=== PATIENT | male | born 2005 | race Caucasian/White ===

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

== ENCOUNTER 2024-08-09 13:00 | Outpatient (RCR) | payer OTHER, MEDICAID, SELFPAY ==
--- NOTE | 2024-06-20 13:29 | HP.PTEVAL_ITS ---
Patient's Visit Information Visit Information Visit Information: RAMIRO POST is a 18 year old M referred to Physical Therapy by AMPARO OATES MD with a diagnosis of Glioma, ataxia, wheel chair assessment. Date of Evaluation: 06/19/24 Physical Therapist: Luis Chacon DPT Visit Plan Frequency: 2x /Week Duration: 6 Weeks Plan: 1) work on dynamic balance and stability 2) reactive righting and balance recovery exercises. 3) Pt. being advised to follow up with [employer] about getting to allow for I at work and home. Subjective Subjective: Pt. is here today for his initial evaluation with diagnosis of ataxia, glioma and hydrocephalus. Pt. reports falling daily. This is often while he is training on his balance at home. Mother reports that he is falling often especially with walking longer distances. Pt. and mother work on walking at the park, but she reports he often falls down. He also is crawling at home due to not having a wheel chair. He crawls mostly in the house, uses stairs with scooting technique due to issues with falling. He reports no weakness throughout BLEs and does do some strength training at home. He uses a total gym. Ramiro reports that he would like to start working. Him and his mother do not think he would be able to complete work activities from a standing throughout the day due to fatigue and issues with falling. Pt. reports no pain. They are hopeful to get a wheel chair that fits him that would allow for him to be able to work and be more independent. Objective Objective: POSTURE: Pt. is able to stand with FWW, but has to heavily use AD to stabilize, he has marked difficulty with maintaining stability in stance. He does use a weighted FWW to assist with stability as well. PALPATION: No issues with palpation throughout BLEs. Pt. no issues with palpation of BUEs. NEURO: Pt. reports normal sensation throughout BLEs and BUEs. Slight hyper reflexive in BUEs and BLEs. Pt is able to rise on heels and toes, but requires balance assistance to complete ROM: Pt. has full ROM of BUEs and BLEs. Slight tightness in B HS as well. MMT: LLE: knee: ext 76#, flexion 57.7#; hip: flexion 32.9#, abd 21.8# RLE: knee: ext 78.9#, flexion 50.4#; hip: flexion 29.7#, abd 22.5#. RUE: 5/5 throughout UE. LUE: 5/5 throughout without increase in symptoms. GAIT: PT. is able to ambulate with fluctuating assistance from CGA to Dao. Pt. has very ataxic motions. He tends to almost tip is FWW with Dao to correct at times. He required frequent assistance to steady self due to his ataxia. Pt.s LEs never gave out on him. Pt. has difficulty staying with in CHARLIE of AD. Directional changes are very difficult more so with safety rather than his st rength. He is not safe to walk independently at this point in time. STAIRs: Pt. completed with step to pattern with heavy use of UEs. Pt. requires min to mod A for stability. When it comes to a wheel chair for Ramiro I think we would really benefit from a manual WC with propulsion assist. He is not very functionally I with walking with FWW at this point in time. I do think it is good from him to continue to walk, but he requires constant supervision and assistance for safety with walking with FWW. The fact that he is crawling at home to some of his locomotion has me concerned as well. By giving him a wheel chair I believe his I with be drastically increased. Balance/Special Test Scores Lower Extremity Functional Score: 22 TUG Test Time Seconds: 50.45 30 Second Chair Rise Test Seconds: 7 Goals Goal 1:: LTG: Pt. to be with HEP. Goal Time Frame: 4-6 Weeks Goal 2:: LTG: PT. to ambulate with SBA with FWW without LOB for 350'. Goal Time Frame: 4-6 Weeks Goal 3:: LTG: Pt. to complete 30 sec sit to stand rep test with out external assistance with 12 reps. Goal Time Frame: 4-6 Weeks Goal 4:: LTG: Pt. to complete TUG with time less than 30seconds indicating increased stability/safety. Goal Time Frame: 4-6 Weeks Rehabilitation Potential Physical Therapy Diagnosis: Pt. has signs and symptoms consistent with glioma and subsequent ataxia. He has very good strength in his BLEs, but marked ataxia with gait. Pt. would benefit from PT to address his ataxia and imbalance. He would also benefit from a WC to allow for more independence at home and work. Rehabilitation Potential: Good Anticipated Interventions Patient/Client Instruction: Educate patient on: Condition, Plan of Care, Risk Factors and Benefits of Fitness Program For the Purpose of:: To foster healthy habits, To improve decision making, To facilitate caregiver knowledge, To improve self management, To prevent re-injury and To improve ability to perform tasks related to life management Therapeutic Exercise to Include: Endurance training, Balance training, Coordination, Body mechanics, Postural training, Gait and locomotor training and Neuromotor development For the Purpose of:: To improve nutrient delivery to tissue, To increase oxygenation perfusion, To improve muscle performance and motor function, To improve ability of physical actions for home/community/work/leisure, To improve gait and locomotor functions and To decrease soft tissue restriction Text: Thank you for the opportunity to evaluate your patient. For Medicare and Medicare HMO plans, please review the plan of care and approve it. It will need to be FAXED BACK to us at [phone] for Medicare purposes. For Medicare only, by signing this I certify the plan of care. Please let me know if there are questions or concerns regarding this plan of care. Physician Sign ature: Date:
== END 2024-08-09 19:00 | disposition home or self-care (01) ==
LOC: PT 13:00
PROVIDERS: PCP Pediatrics; Referring Provider Pediatrics; Visit Provider Pediatrics
DX: C71.9 Malignant neoplasm of brain, unspecified (principal); G91.9 Hydrocephalus, unspecified; R27.0 Ataxia, unspecified
CPT/HCPCS: 97110; 97161; 97530